=== PATIENT | male | born 1995 | race Caucasian/White ===

== ENCOUNTER 2017-11-29 12:36 | Emergency (ER) | payer OTHER ==
[2017-11-29 13:15] VITALS: BP 135/85; PULSE 93; RESP 18; TEMP 98.2
[2017-11-29] MEDS ORDERED: LIDOCAINE 1% INJ 10MG/ML (20 ML MDV) SQ ONE (13:15)
--- NOTE | 2017-11-29 13:16 | ED ---
Wound/Laceration HPI - General Chief Complaint: Wound/Laceration Stated Complaint: lt wrist lac Time Seen by Provider: 11/29/17 13:05 - History of Present Illness Initial Comments: 22-year-old male who denies past medical history presents today for chief complaint of laceration left wrist. Patient states that he was going up the stairs his home about an hour prior to presentation, when he tripped over shoes falling into the aluminum door. He states that there was a sharp piece that cut his left wrist-denies piece breaking off. Pt denies injury being self induced or any suicidal ideations. Patient denies falling hitting his head, injury to any extremity, patient denies any numbness, tingling, loss sensation. Patient states he is able to fully range at the wrist and the hand, he denies pain aside from at the site of laceration. Patient states he does not think he broke a bone. Pt applied pressure and immediately drove to the ER. Pt states last tetanus a year ago. Patient denies any recent fever, chills, shortness of breath, chest pain, back pain, abdominal pain, nausea or vomiting, numbness or tingling, dysuria or hematuria, constipation or diarrhea, headaches or visual changes, or any other complaints. - Related Data Home Medications Medication Instructions Recorded Confirmed No Known Home Medications 11/29/17 11/29/17 Allergies Allergy/AdvReac Type Severity Reaction Status Date / Time No Known Allergies Allergy Verified 11/29/17 13:13 Review of Systems ROS Statement: Those systems with pertinent positive or pertinent negative responses have been documented in the HPI. ROS Other: All systems not noted in ROS Statement are negative. Constitutional: Denies: fever, chills Eyes: Denies: eye pain ENT: Denies: ear pain, throat pain Respiratory: Denies: cough, dyspnea, wheezes, hemoptysis Cardiovascular: Denies: chest pain, palpitations Endocrine: Denies: fatigue Gastrointestinal: Denies: abdominal pain, nausea, vomiting, diarrhea, constipation Genitourinary: Denies: urgency, dysuria Skin: Reports: as per HPI (3cm laceration over lateral asepct of left wrist) Neurological: Denies: numbness, paresthesias, abnormal gait General Exam - General Exam Comments Initial Comments: General: The patient is awake and alert, in no distress, and does not appear acutely ill. Eye: Pupils are equal, round, extra-ocular movements are intact. No nystagmus. There is normal conjunctiva bilaterally. No signs of icterus. JVD. Cardiovascular: There is a regular rate and rhythm. No murmur, rub or gallop is appreciated. Respiratory: Lungs are clear to auscultation, respirations are non-labored, breath sounds are equal. No wheezes, stridor, rales, or rhonchi. Musculoskeletal: Normal ROM at the carpals-flexion/extension, supination and pronation, MCP, DIP and PIP joints of the hands bilaterally, no tenderness. Strength 5/5 at the area status of range of motion. Sensation intact of the upper extremities including hands equally bilaterally. Ulnar and radial pulses equal bilaterally 2+. Neurological: A&O x 3. CN II-XII intact, There are no obvious motor or sensory deficits. Coordination appears grossly intact. Speech is normal. Skin: Skin is warm and dry and no rashes or lesions are noted. 3cm laceration with exposure of adipose but no other underlying structure of the left lateral aspect of wrist. No evidence of FB. Psychiatric: Cooperative, appropriate mood & affect, normal judgment. Course Vital Signs 11/29/17 13:13 Temperature 98.2 F Pulse Rate 93 Respiratory 18 Rate Blood Pressure 135/85 O2 Sat by Pulse 96 Oximetry Procedures - Laceration Laceration #1 Consent Obtained: verbal consent Time Out Performed: Yes Indication: laceration Site: upper extremity (left wrist) Size (cm): 3 Description: linear Anesthetic Used: lidocaine 1% Anesthesia Technique: local infiltration Amount (mls): 10 Pre-repair: wound explored, irrigated extensively, deep structures intact Type of Sutures: nylon Size of Sutures: 4-0 Number of Sutures: 8 Technique: simple, interrupted Patient Tolerated Procedure: well, no complications Medical Decision Making - Medical Decision Making PE as described above. Patient tetanus up-to-date. Laceration was approximated using 8 or point 0 nylon sutures after thorough expiration and irritation. There is no evidence of foreign body or injury to underlying structures. No signs or symptoms of tendinous injury at this time. Patient is given return parameters, and instruction to return in 7 days for suture removal. Patient is also educated on signs of infection. Case discussed with Dr. Frank. At this time feel patient is stable for discharge. Disposition Clinical Impression: Laceration of left wrist without complication Disposition: HOME SELF-CARE Condition: Good Instructions: Care For Your Stitches (ED), Laceration (ED) Additional Instructions: Please care for sutures as discussed, monitoring for signs of infection. Please follow-up with for suture removal in 7-10 days. Please return to emergency room if the symptoms increase or worsen or for any other concerns. Is patient prescribed a controlled substance at d/c from ED?: No Referrals: None,Stated [Primary Care Provider] - 1-2 days Time of Disposition: 14:22
== END 2017-11-29 14:25 | disposition home or self-care (01) ==
LOC: EC 12:36
DX: S61.512A Laceration without foreign body of left wrist, initial encounter (principal); W26.9XXA Contact with unspecified sharp object(s), initial encounter
CPT/HCPCS: 99282; 12002; J2001

== ENCOUNTER 2017-12-07 20:44 | Emergency (ER) | payer OTHER ==
[2017-12-07 20:54] VITALS: BP 151/82; PULSE 98; RESP 18; TEMP 98.2
--- NOTE | 2017-12-07 22:03 | ED ---
Wound/Laceration HPI - General Source: patient, RN notes reviewed Mode of arrival: ambulatory Limitations: no limitations <Sonia Maurice - Last Filed: 12/07/17 21:57> <Valencia Roberts - Last Filed: 12/07/17 23:16> - General Chief Complaint: Wound/Laceration Stated Complaint: arm lac not healed-revisit Time Seen by Provider: 12/07/17 21:29 - History of Present Illness Initial Comments: This is a 22-year-old male who presents to the emergency department with chief complaint of non-healing wound. Patient states 8 days ago he fell and lacerated his left forearm. He states that 8 sutures were placed and he was advised to have them removed in 7 days. Patient states that he removed them himself today. He states that the wound is not completely healed together and he is concerned for infection. He states that when he removed the sutures white pus came out. He denies any fevers or chills, chest pain or shortness of breath, abdominal pain, nausea or vomiting. Denies any new injuries. (Sonia Maurice) - Related Data Home Medications Medication Instructions Recorded Confirmed No Known Home Medications 11/29/17 11/29/17 Allergies Allergy/AdvReac Type Severity Reaction Status Date / Time No Known Allergies Allergy Verified 12/07/17 20:54 Review of Systems ROS Other: All systems not noted in ROS Statement are negative. <Sonia Maurice - Last Filed: 12/07/17 21:57> ROS Other: All systems not noted in ROS Statement are negative. <Valencia Roberts - Last Filed: 12/07/17 23:16> ROS Statement: Those systems with pertinent positive or pertinent negative responses have been documented in the HPI. Past Medical History Past Medical History: No Reported History History of Any Multi-Drug Resistant Organisms: None Reported Past Surgical History: No Surgical Hx Reported Past Psychological History: No Psychological Hx Reported Smoking Status: Never smoker Past Alcohol Use History: Occasional Past Drug Use History: None Reported <Sonia Maurice - Last Filed: 12/07/17 21:57> General Exam Limitations: no limitations <Sonia Maurice - Last Filed: 12/07/17 21:57> <Valencia Roberts - Last Filed: 12/07/17 23:16> - General Exam Comments Initial Comments: General: Awake and alert, well-developed; in no apparent distress. HEENT: Head atraumatic, normocephalic. Pupils are equal, round and reactive to light. Extraocular movements intact. Oropharynx moist without erythema or exudate. Neck: Supple. Normal ROM. Cardiovascular: Regular rate and rhythm. No murmurs, rubs or gallops. Chest symmetrical. Respiratory: Lungs clear to auscultation bilaterally. No wheezes, rales or rhonchi. Normal respiratory effort with no use of accessory muscles. Musculoskeletal: Normal ROM, no tenderness bilateral upper and lower extremities. Ambulating normally. Skin: Approximately 3.0 cm healing linear laceration to the left medial distal ventral forearm. Superficial skin layer is not approximated, however deep tissues appear well-healed. Mild erythema surrounding suture removal sites. No drainage noted. No surrounding erythema or tenderness. Neurological: Alert and oriented x3. CN II-XII grossly intact. Speech is fluent and answers are appropriate. No focal neuro deficits. Psychiatric: Normal mood and affect. No overt signs of depression or anxiety noted. (Sonia Maurice) Vital Signs 12/07/17 20:49 Temperature 98.2 F Pulse Rate 98 Respiratory 18 Rate Blood Pressure 151/82 O2 Sat by Pulse 99 Oximetry Medical Decision Making <Sonia Maurice - Last Filed: 12/07/17 21:57> <Valencia Roberts - Last Filed: 12/07/17 23:16> - Medical Decision Making This is a 22-year-old male who presents to the emergency department with chief complaint of non-healing wound. Patient sustained a laceration 8 days ago to the left forearm and 8 sutures were placed. Patient attempted to remove them himself today. The outer edges are not fully healed and approximated. Deep tissues are intact. No signs of infection. The wound was thoroughly cleansed and Steri-Strips placed. Signs of infection were discussed with patient. He will be discharged home. He is in agreement and voices understanding. All questions were answered. (Sonia Maurice) I was available for consultation in the emergency department. The history and physical exam were done by the midlevel provider. I was consulted for this patient's care. I reviewed the case with the midlevel provider and based on their presentation of the patient, I agree with the assessment, medical decision making and plan of care as documented. (Valencia Roberts) Disposition Is patient prescribed a controlled substance at d/c from ED?: No Time of Disposition: 22:03 <Sonia Maurice - Last Filed: 12/07/17 21:57> <Valencia Roberts - Last Filed: 12/07/17 23:16> Clinical Impression: Healing laceration Disposition: HOME SELF-CARE Condition: Good Instructions: Laceration (ED), Steristrips (ED) Additional Instructions: As discussed, please monitor for signs of infection and keep Steri-Strips in place until they fall off on their own. Please follow up with primary care provider within 1-2 days. Return to emergency department if symptoms should worsen or any concerns arise. Referrals: None,Stated [Primary Care Provider] - 1-2 days
== END 2017-12-07 22:06 | disposition home or self-care (01) ==
LOC: EC 20:44
DX: S51.812D Laceration without foreign body of left forearm, subsequent encounter (principal); W18.39XD Other fall on same level, subsequent encounter
CPT/HCPCS: 99282